=== PATIENT | male | born 1980 | race Caucasian/White ===

== ENCOUNTER 2023-01-20 21:58 | Emergency (ER) | payer OTHER ==
[~2023-01-20] VITALS: Ht 162.6 cm; Wt 83.0 kg
[2023-01-20 22:32] VITALS: BP_SYST 139
[2023-01-20] MEDS ORDERED: DIPHTH,PERTUSS(ACELL),TET VAC 0.5 ML VIAL (Tdap) I.M. ONE (23:00)
[2023-01-20] MEDS ORDERED: KETOROLAC TROMETHAMINE 30 MG VIAL IM ONE (23:00)
[2023-01-21] MEDS ORDERED: IBUP-1969 PO (00:04)
[2023-01-21] MEDS ORDERED: ACET-2634 PO (00:04)
[2023-01-21] MEDS ORDERED: BACI15OI13 TP (00:14)
[2023-01-21 00:35] VITALS: BP_SYST 135
== END 2023-01-21 00:35 | disposition home or self-care (01) ==
LOC: SED 21:58
DX: S01.81XA Laceration without foreign body of other part of head, initial encounter (principal); S80.12XA Contusion of left lower leg, initial encounter; R03.0 Elevated blood-pressure reading, without diagnosis of hypertension; Z79.899 Other long term (current) drug therapy; W18.42XA Slipping, tripping and stumbling without falling due to stepping into hole or opening, initial encounter; Y93.89 Activity, other specified; Y92.89 Other specified places as the place of occurrence of the external cause; Y99.8 Other external cause status
CPT/HCPCS: 99284; 73590; 90715; 96372; 90471; J1885